=== PATIENT | female | born 1960 | race Asian ===

== ENCOUNTER → 2016-10-30 | Outpatient (CLI) | payer MEDICAID ==
--- NOTE | 2016-10-30 14:53 | MA ---
Screening Digital Mammogram With iCAD Indication: Routine screening. Technique: Standard cephalocaudal and mediolateral oblique projections were obtained. This examinat ion was processed by the iCAD computer-aided detection system. Comparison: October 2015, August 2014, and October 2011. Breast density: Type B. Findings: CAD was reviewed. No suspicious microcalcifications, mass, or architectural distortion. Impression: Negative mammogram BI-RADS: 1 - Negative Recommendation: Routine screening is recommended in one year. [facility] will send a result letter to the patient. Negative mammography should not preclude additional workup of a clinically suspicious finding. The patient's information is entered into a reminder system with a target due date for her next mammo gram.
== END ==
LOC: CIMAGING 11:55
DX: Z12.31 Encounter for screening mammogram for malignant neoplasm of breast (principal)
CPT/HCPCS: G0202

== ENCOUNTER → 2017-06-05 | Outpatient (CLI) | payer MEDICAID | LOC: CIMAGING 10:09 | PROVIDERS: ATTEND Nurse Practitioner Women's Health | DX: J40 Bronchitis, not specified as acute or chronic (principal) | CPT/HCPCS: 71020-PO ==

== ENCOUNTER → 2017-11-23 | Outpatient (CLI) | payer MEDICAID | LOC: CIMAGING 11:52 | PROVIDERS: ATTEND Nurse Practitioner Women's Health | DX: Z12.31 Encounter for screening mammogram for malignant neoplasm of breast (principal) ==

== ENCOUNTER → 2017-11-23 | Outpatient (CLI) | payer MEDICAID | LOC: CIMAGING 11:49 | PROVIDERS: ATTEND Nurse Practitioner Women's Health | DX: R91.8 Other nonspecific abnormal finding of lung field (principal) | CPT/HCPCS: 71046-PO ==

== ENCOUNTER → 2018-10-25 | Outpatient (CLI) | payer MEDICAID | LOC: CIMAGING 11:18 | PROVIDERS: ATTEND Nurse Practitioner Women's Health | DX: I51.7 Cardiomegaly (principal); J98.11 Atelectasis | CPT/HCPCS: 71046-PO ==

== ENCOUNTER 2018-10-28 13:05 | Emergency (ER) | payer MEDICAID ==
[2018-10-28 13:26] VITALS: BP 179/85
--- NOTE | 2018-10-28 13:38 | EDPHY ---
H & P Time Seen by Provider: 10/28/18 13:16 HPI/ROS: HPI Chronic cough. 58-year-old female by private vehicle with her friend. This patient reports that she has had an ongoing cough for the last 2-3 months at least. She does states that it is sometimes productive of a whitish frothy sputum. She reports that she has been seen by her primary care physician at [facility] twice for this. She was initially told was secondary to an allergy. She then was told it was secondary to a virus. She states that the cough is present and worse when she tries to lay flat. She also reports that she is more short of breath when she lays flat. She also reports that the cough is exacerbated by physical exertion as is her shortness of breath. ROS: Constitutional: No fever, no chills. As above. Eyes: No discharge. No changes in vision. ENT: No sore throat. No nasal congestion or rhinorrhea. Respiratory: As above. Cardiac: No chest pain, no palpitations. Gastrointestinal: No abdominal pain, no vomiting, no diarrhea. Genitourinary: No hematuria. No dysuria or increased frequency with urination. Musculoskeletal: No back pain. No neck pain. No myalgias or arthralgias. Skin: No rashes. Neurological: No headache. No focal weakness or altered sensation. Past medical history: Depression, GERD, hypertension, type 2 diabetes, obesity. Primary care is through [facility]. Social history: Nonsmoker. No alcohol. Here with her friend. Physical Exam: General Appearance: Alert, she is not in distress. Obese. This patient is responding to questions appropriately and in full sentences. This patient appears well-hydrated and well-nourished. Eyes: Pupils equal and round no pallor or injection. No lid edema, erythema or injection. ENT, Mouth: Mucous membranes are moist. The pharyngeal tissues are unremarkable. No edema or swelling. No asymmetry suggestive of abscess. No erythema or exudates. Respiratory: There are no retractions, lungs are clear to auscultation with good air movement bilaterally. No tachypnea. Cardiovascular: Regular rate and rhythm. No murmur appreciated. Neurological: Motor sensory function is grossly intact. Cranial nerves are normal. Gait is normal. Skin: Warm and dry, no rashes. Musculoskeletal: Neck is supple and nontender. Extremities are symmetrical. All joints range without pain or impingement. Psychiatric: No agitation. No depression. Database: EKG: Imaging: I reviewed her chest x-ray from last Sunday. Findings are consistent with congestive heart failure/fluid overload without yuliet pulmonary edema. Her heart appears large as well. No pneumonia. No pneumothorax. Procedures: Emergency department course: Triage vital signs reviewed. She is hypertensive. Vital signs are otherwise within normal limits. She is afebrile. 1:50 p.m., the patient was re-evaluated, she is resting comfortably. I discussed the results of her x-ray and explained to her I felt she had signs of congestive heart failure. At this time, I do not feel that further emergency department workup is needed. However, I explained to her that she will need to see a bundle wrapper within the next week for follow-up, an echocardiogram, further testing and treatment. She is in agreement with this plan and she feels comfortable going home with her friend. Return to emergency department precautions were thoroughly reviewed with her. All of her questions were answered. She was discharged from the emergency department in good condition with her friend. Differential Diagnosis: The differential diagnosis on this patient includes but is not limited to bronchitis versus congestive heart failure. Pneumonia, acute coronary syndrome , pulmonary embolism unlikely. This represents a partial list of diagnoses considered. These considerations are based on history, physical exam, past history, reassessment and diagnostic testing. Constitutional: Initial Vital Signs Temperature (C) 37.2 C 10/28/18 13:16 Heart Rate 97 10/28/18 13:16 Respiratory Rate 20 10/28/18 13:16 Blood Pressure 179/85 H 10/28/18 13:16 O2 Sat (%) 95 10/28/18 13:16 O2 Delivery Mode Room Air Allergies/Adverse Reactions: No Known Allergies Allergy (Verified 10/28/18 13:13) Home Medications: Medication Instructions Recorded Clonazepam 2 mg PO 02/22/12 Hydrochlorothiazide 02/22/12 [Hydrochlorothiazide 25 MG (RX)] Metoprolol Succinate 100 mg PO 02/22/12 Ondansetron Odt [Zofran Odt] 4 mg PO Q4PRN PRN #4 tab 02/22/12 Sertraline HCl [Zoloft 20mg/ml 02/22/12 oral liquid] Abilify 11/27/13 Omeprazole Magnesium [Prilosec] 10/28/18 Departure - Departure Disposition: Home, Routine, Self-Care Clinical Impression: Cough, Congestive heart failure Condition: Good Instructions: Heart Failure (ED) Additional Instructions: Read and follow provided instructions. Follow-up with Cardiology, as discussed for further testing, an echocardiogram and treatment. [facility], the cardiology group, should contact you in the next 1-2 days for appointment time. However, if you do not hear from them call their office is to schedule an appointment. Explain this is for an emergency department follow-up. Continue taking your medication as prescribed. Avoid any strenuous activity. Return to the emergency department for worsening symptoms, worsening shortness of breath, worsening cough, chest pain or other serious concerns. Referrals: CAMILA CRAWFORD [Other] - As per Instructions [facility] [Provider Group] - As per Instructions
== END 2018-10-28 14:03 | disposition home or self-care (01) ==
LOC: CED 13:05
DX: I50.9 Heart failure, unspecified (principal); R05 Cough
CPT/HCPCS: 99282-ER

== ENCOUNTER → 2018-11-04 | Outpatient (CLI) | payer OTHER, MEDICAID | LOC: BHLMT 16:15 | PROVIDERS: ATTEND Internal Medicine Cardiovascular Disease | DX: R06.02 Shortness of breath (principal); R53.83 Other fatigue; E66.9 Obesity, unspecified | CPT/HCPCS: 93306-PO ==

== ENCOUNTER → 2018-11-07 | Outpatient (CLI) | payer OTHER, MEDICAID | LOC: BHFA 09:00 | PROVIDERS: ATTEND Internal Medicine Cardiovascular Disease | DX: I25.10 Atherosclerotic heart disease of native coronary artery without angina pectoris (principal); R06.02 Shortness of breath; I10 Essential (primary) hypertension | CPT/HCPCS: 78452; 93017; A9500; J2785 ==

== ENCOUNTER 2019-02-18 10:42 | Outpatient (CLI) | payer OTHER, MEDICAID | END 2019-02-26 | LOC: CIMAGING 10:42 ==